=== PATIENT | female | born 1950 | race Caucasian/White ===

== ENCOUNTER 2019-10-09 08:14 | Observation (INO) ==
--- NOTE | 2019-09-09 16:49 | PAT Medication Instructions ---
Medication Instructions Date of Service September 09, 2019 Home Medications albuterol sulfate 90 mcg/actuation aerosol inhaler 2 puffs INH Q4H PRN ascorbic acid (vitamin C) 500 mg capsule 500 mg PO BID aspirin 81 mg tablet,delayed release 81 mg PO QAM calcium carbonate-vitamin D3 600 mg (1,500 mg)-400 unit capsule 2 cap PO QAM ezetimibe 10 mg-simvastatin 20 mg tablet 1 tab PO QAM fluticasone fur. 100 mcg-umeclid 62.5 mcg-vilant 25 mcg inhalat.powder 1 puffs INH QAM hydrocodone 5 mg-acetaminophen 325 mg tablet 1 tab PO Q6H PRN losartan 50 mg tablet 50 mg PO QAM magnesium oxide 400 mg PO TID metoprolol succinate 25 mg tablet,extended release 24 hr 12.5 mg PO QAM multivitamin 1 tab PO QAM sertraline 100 mg tablet 100 mg PO QAM montelukast 10 mg PO QAM omeprazole 40 mg PO QAM DO NOT take the morning of surgery ascorbic acid (vitamin C) 500 mg capsule 500 mg PO BID calcium carbonate-vitamin D3 600 mg (1,500 mg)-400 unit capsule 2 cap PO QAM hydrocodone 5 mg-acetaminophen 325 mg tablet 1 tab PO Q6H PRN losartan 50 mg tablet 50 mg PO QAM magnesium oxide 400 mg PO TID multivitamin 1 tab PO QAM montelukast 10 mg PO QAM Take morning of surgery With a small sip of water, OTHERWISE NOTHING TO EAT OR DRINK AFTER MIDNIGHT: albuterol sulfate 90 mcg/actuation aerosol inhaler 2 puffs INH Q4H PRN (if needed) aspirin 81 mg tablet,delayed release 81 mg PO QAM ezetimibe 10 mg-simvastatin 20 mg tablet 1 tab PO QAM fluticasone fur. 100 mcg-umeclid 62.5 mcg-vilant 25 mcg inhalat.powder 1 puffs INH QAM metoprolol succinate 25 mg tablet,extended release 24 hr 12.5 mg PO QAM sertraline 100 mg tablet 100 mg PO QAM omeprazole 40 mg PO QAM Take evening before surgery albuterol sulfate 90 mcg/actuation aerosol inhaler 2 puffs INH Q4H PRN (if needed) ascorbic acid (vitamin C) 500 mg capsule 500 mg PO BID hydrocodone 5 mg-acetaminophen 325 mg tablet 1 tab PO Q6H PRN (if needed) magnesium oxide 400 mg PO TID Other Notes If you have any questions please call us at [phone] or [phone] or [phone] or [phone]
--- NOTE | 2019-09-10 11:14 | Anesthesiology Consultation ---
Date of Service September 10, 2019 Assessment & Plan (1) Encounter for pre-operative examination: COVID Status: As of 09/09 assessment, patient denies travel to endemic area, known exposure/sick contacts, or symptoms of COVID19. Patient instructed to follow strict social distancing guidelines, wear a mask in public and avoid travel for 14 days prior to surgery. Preoperative COVID19 testing to be completed prior to surgery (10/02 at [facility]). Patient made aware to self-isolate as much as possible between COVID testing and surgery. Patient with h/o 10 total lumbar surgeries. Likely difficult spinal. This was discussed with patient. She understands there will be further evaluation AM DOS. OR notified of possible need for GA and to make case later in the day; if pre-op covid test not resulted by time of surgery, pt will need 20/20 rule. Chart Review Chart Review: Acceptable Risk for Surgery and Patient seen in Pre Admission Testing Teaching & Discussion Instructed NPO after midnight before surgery, except medications with 15 cc of water. Medication instructions provided according to the PAT guidelines. History Surgery Operation Date: 10/09/19 09:05 Proposed Procedures p Right Total Knee Arthroplasty - Bladimir Tena MD Height/Weight Height: 5 ft 4 in Weight: 91.4 kg Allergies Allergy/AdvReac Type Severity Reaction Status Date / Time morphine Allergy Unknown Unknown Unverified 09/03/19 10:55 Medications Home Medications Medication Instructions Recorded Confirmed Last Taken albuterol sulfate 90 mcg/actuation 2 puffs INH Q4H PRN gm 12/19/18 09/03/19 Unknown aerosol inhaler ascorbic acid (vitamin C) 500 mg 500 mg PO BID cap 12/19/18 09/03/19 Unknown capsule aspirin 81 mg tablet,delayed 81 mg PO QAM 12/19/18 09/03/19 Unknown release calcium carbonate-vitamin D3 600 2 cap PO QAM cap 12/19/18 09/03/19 Unknown mg (1,500 mg)-400 unit capsule ezetimibe 10 mg-simvastatin 20 mg 1 tab PO QAM 12/19/18 09/03/19 Unknown tablet fluticasone fur. 100 mcg-umeclid 1 puffs INH QAM 12/19/18 09/03/19 Unknown 62.5 mcg-vilant 25 mcg inhalat.powder hydrocodone 5 mg-acetaminophen 325 1 tab PO Q6H PRN 10/23/19 07/07/20 Unknown mg tablet losartan 50 mg tablet 50 mg PO QAM 12/19/18 09/03/19 Unknown magnesium oxide 400 mg PO TID tab 12/19/18 09/03/19 Unknown metoprolol succinate 25 mg 12.5 mg PO QAM 12/19/18 09/03/19 Unknown tablet,extended release 24 hr multivitamin 1 tab PO QAM 12/19/18 09/03/19 Unknown sertraline 100 mg tablet 100 mg PO QAM 12/19/18 09/03/19 Unknown montelukast 10 mg PO QAM 09/03/19 09/03/19 Unknown omeprazole 40 mg PO QAM 09/03/19 09/03/19 Unknown Past Medical History Medical History (Updated 09/11/19 @ 11:38 by Deuce Yoo) Anxiety Asthma WELL CONTROLLED > RES INH EVERY DAY JUST FOR EXTRA PRECAUTION Diverticular disease GERD (gastroesophageal reflux disease) Heart murmur Mild-moderate mitral regurgitation per 2018 echo Hx of gastric ulcer Hyperlipidemia Hypertension Osteoarthritis Exercise / Class Metabolic Activity II 4-5 Yardwork/Stairs/Walk up hill (Denies CP or SOB with 1 FOS) Past Family History Family History Mother Rectal cancer Past Surgical History Surgical History (Updated 09/11/19 @ 11:35 by Deuce Yoo) History of back surgery X 10. WITH RODS AND RECONSTRUCTION> STANDARD/ [facility] History of bilateral tubal ligation History of cardiac cath 2018 due to chest pain and abnormal stress test. Mild, nonobstructive two vessel CAD. History of carpal tunnel release RIGHT History of colonoscopy History of esophagogastroduodenoscopy (EGD) History of hysterectomy History of tooth extraction History of total shoulder replacement LEFT Hx of cervical spine surgery X1. 30 YRS AGO. ROM IS GOOD PER PATIENT Hx of hand surgery THUMB SURGERY LEFT HAND Past Anesthesia History No Hx of Anesthesia Complications and No Family Hx of Anesthesia Complications History of PONV No Hx of PONV and No Hx of Motion Sickness Social History Smoking Status: Former smoker Do You Dip or Chew Tobacco: No Smoking End Date: 23 YRS AGO Hx Alcohol Use: Yes Alcohol type: wine and hard liquor alcohol intake frequency: a few times a month Hx Substance Use: No substance use type: does not use Review of Systems Pt denies any recent chest pain, shortness of breath, palpitations, cough, fever or URI. Physical Exam Vital Signs BP: 121/76 P: 56bpm SPO2: 93% RA T: 98.5 F R: 16 ENMT Mouth: + dentures (full upper); no chipped teeth and no loose teeth Thyromental Distance: > or= 3.5 Finger Breadths (3.5) Mallampati Class: I Neck + short neck; neck extension not limited Respiratory normal respiratory effort Auscultation: lungs clear to auscultation bilaterally Cardiovascular Rate/Rhythm: regular rate and regular rhythm Heart Sounds: + murmur (II/ SABRINA RSB) Vessels: no carotid bruit Extremities: no edema Testing Laboratory Results 09/10/19 11:25 09/10/19 11:25 PT 11.3 Seconds (9.0-12.0) 09/10/19 11: INR 1.1 (0.9-1.1) 09/10/19 11: APTT 28.2 Seconds (21.0-31.0) 09/10/19 11:25 Blood Type O Positive 09/10/19 11:25 Antibody Screen POSITIVE A 09/10/19 11:25 Spoke to [place] in Blood Bank re: + antibodies. Patient has anti-K ab, nothing further needed. Electrocardiogram Date: 05/09/19 Findings: + NSR @ (77bpm) Left axis deviation. RBBB. Inferior infarct, age undetermined. Chest X-Ray Date: 05/09/19 Stable emphysematous changes in the lungs. Small amount of fluid in the fissure. Echocardiogram Date: 09/15/17 EF: 55% Grade 1 diastolic dysfunction. No LVH. Mildly dilated left atrium. Normal RV size and function. Mild to moderate mitral regurgitation. Otherwise normal study. Cardiac Catheterization Date: 10/12/17 1. LM is normal 2. LAD is a medium-sized vessel with no angiographically significant disease. 3. LCx artery is a medium-sized vessel with mild area of stenosis, which is less than 20% in the proximal segment. RV SERVICER is a medium to large-sized vessel, dominant with mild less than 30% stenosis. Conclusion: Mild CAD.
[2019-09-10 12:13] LABS: Basophils # (auto) 0.01 K/uL (0-0.2); Basophils % (auto) 0.2 %; Eosinophils % (auto) 1.6 %; Hematocrit (blood only) 39.4 % (37-47); Hemoglobin 12.6 g/dL (12.0-16.0); Lymphocytes # (auto) 1.49 K/uL (1.2-3.4); Lymphocytes % (auto) 23.8 %; Mean Corpuscular Hemoglobin 30.9 pg (25-34); Mean Corpuscular Volume 96.6 fL (80-100); Mean Platelet Volume 10.7 fL (7.4-10.4); Monocytes # (auto) 0.85 K/uL (0.11-0.59); Monocytes % (auto) 13.6 %; Neutrophils # (auto) 3.82 K/uL (1.4-6.5); Neutrophils % (auto) 60.8 %; Platelet Count 153 K/uL (130-400); RDW Coefficient of Variation 15.2 % (11.5-14.5); RDW Standard Deviation 53.6 fL (36.4-46.3); Red Blood Count 4.08 M/uL (4.2-5.4); White Blood Count 6.27 K/uL (4.8-10.8)
[2019-09-10 12:23] LABS: BUN Creatinine Ratio 14.3 (10-20); Blood Urea Nitrogen 13 mg/dl (7-18); C Reactive Protein < 0.29 mg/dl (0-0.29); Calcium 9.3 mg/dl (8.5-10.1); Carbon Dioxide 30 mmol/L (21-32); Chloride 105 mmol/L (98-107); Creatinine Clr Calc Pharmacy 61.6 ml/min; Est GFR (African American) 72.2; Est GFR (Non-African American) 62.3; Glucose 92 mg/dl (70-99); Potassium 4.5 mmol/L (3.5-5.1); Sodium 140 mmol/L (136-145)
[2019-09-10 12:28] LABS: INR 1.1 (0.9-1.1); Partial Thromboplastin Time 28.2 Seconds (21.0-31.0); Prothrombin Time 11.3 Seconds (9.0-12.0)
--- NOTE | 2019-10-05 12:54 | History and Physical Report ---
DATE OF ADMISSION: 10/09/2019 CHIEF COMPLAINT: Persistent right knee pain, discomfort and swelling and instability. HISTORY OF PRESENT ILLNESS: The patient is a 69-year-old female who presents for surgical treatment of right knee. She has about a 5+ year history of gradually increasing right knee pain and discomfort that has gotten worse over time. She was initially treated with injections, which helped quite a bit, but has become less successful over time. She describes global pain in the knee. The shots helped for about a week. She has a limited walking tolerance. She has pain going up and down stairs. It does swell and feels tight and stiff. She is also concerned about giving out. She would like to have it fixed. PAST MEDICAL HISTORY: 1. Hypertension. 2. Elevated cholesterol. 3. Emphysema/COPD. 4. Arthritis. PAST SURGICAL HISTORY: Include: 1. Back operation x10 with the last one done 4 years ago in [place]. 2. Shoulder replacement done by Dr. Camacho. ALLERGIES: None. CURRENT MEDICINES: Include: 1. Albuterol. 2. Vitamin C. 3. Aspirin. 4. Vitamin D. 5. Vytorin. 6. Fluticasone nasal spray. 7. Hydrocodone/Tylenol. 8. Cozaar. 9. Magnesium oxide. 10. Metoprolol. 11. Montelukast. 12. Multivitamin. 13. Ranitidine. 14. Sertraline. 15. Zoloft. SOCIAL HISTORY: A 69-year-old female. She is . Does not smoke. No significant alcohol intake. FAMILY HISTORY: Noncontributory. REVIEW OF HISTORY: Negative for diabetes, neurologic problem, vascular problems or bleeding disorders. No chest pain or shortness of breath. No history of DVT or PE. No known bleeding problems. PHYSICAL EXAMINATION GENERAL: Shows a pleasant, middle-aged female. Looks to be in pretty good health. HEENT: Benign. NECK: Supple, no lymphadenopathy. LUNGS: Clear to auscultation. HEART: Regular rate and rhythm. ABDOMEN: Soft, nontender, nondistended. EXTREMITIES: Grossly neurovascularly intact except as follows. Examination of the right knee reveals the patient ambulates with a slight bit of a limp. Fairly neutral alignment to her knee. She has a small to moderate sized knee effusion. Range of motion about 5 degrees short of full extension and 125 degrees of flexion. There is no instability. She has no pain with hip motion. X-RAYS: X-rays of the right knee from previously reviewed. Shows moderate to advanced right knee tricompartment DJD. She has chondrocalcinosis. A little bit of tibial femoral subluxation. ASSESSMENT: A 69-year-old female with moderately advanced tricompartment degenerative joint disease, unresponsive to conservative care. It is affecting her quality of life and limiting her activity level and she would like to have her knee fixed. PLAN: We are going to proceed with a right total knee replacement. The risks and benefits of this procedure were explained to the patient including but not limited to DVT, PE, , infection, neurological injury, vascular injury, bleeding problem, pain, limited range of motion, stiffness, failure to relieve symptoms, incomplete relief of symptoms, need for further surgery in the future, fracture, leg length inequality, nerve palsy, incomplete relief of symptoms. The patient understands and desires to proceed. Informed consent was obtained. I did tell him that this is not going to help her back pain. We did talk to her about taking her metoprolol the morning of surgery.
[~2019-10-09 08:14] MED LIST: ACETAMINOPHEN 500 MG TAB PO SCH; BUPIVACAINE 0.25% 30 ML VIAL ONE; BUPIVACAINE 0.5 % 5 MG/1 ML PF 10ML VIAL ONE; BUPIVACAINE LIPOSOME/PF 266 MG, BUPIVACAINE/EPINEPHRINE 50 ML, SODIUM CHLORIDE 0.9% 30 ... INFIL SCH; CEFAZOLIN 2000MG 2,000 MG/15 ML SYR IV SCH; FAMOTIDINE 20 MG TAB PO SCH; GABAPENTIN 300 MG CAP PO SCH; LR 500ML BOLUS, THEN 15ML/HR IV SCH; LR 60ML/HR IV SCH; METOCLOPRAMIDE HCL 10 MG TABLET PO SCH; TRANEXAMIC ACID 1,000 MG **IV Intra-op IV SCH
--- NOTE | 2019-10-09 08:57 | History & Physical Bridge Note ---
Date of Service October 09, 2019 History & Physical Bridge Note I have examined the patient, reviewed the History & Physical and in the interval since the performance of the History & Physical I have noted the following changes of clinical significance: no changes noted
[2019-10-09] MEDS ORDERED: MIDAZOLAM HCL 1 MG/ML 2ML VIAL ONE ×2 (09:23→12:37)
[2019-10-09] MEDS ORDERED: ATROPINE SULFATE 0.1 MG/ML 10ML SYR IV PRN (09:46)
[2019-10-09] MEDS ORDERED: fentaNYL citrate 100 MCG/2 ML VIAL IV PRN (09:46)
[2019-10-09] MEDS ORDERED: ONDANSETRON INJ 2 MG/ML 2 ML VIAL IV PRN ×2 (09:46→14:33)
[2019-10-09] MEDS ORDERED: ePHEDrine sulfate 50 MG/ML AMP IV PRN (09:46)
[2019-10-09] MEDS ORDERED: BUPIVACAINE LIPOSOME 1.3% 266 MG/20 ML VIAL ONE (11:08)
[2019-10-09] MEDS ORDERED: SODIUM CHLORIDE 0.9% PF 50 ML VIAL ONE (11:08)
[2019-10-09] MEDS ORDERED: BACITRACIN INJ 50,000 UNIT VIAL ONE (11:08)
[2019-10-09] MEDS ORDERED: BUPIVACAINE/EPINEPHRINE 0.25% 1:200,000 30 ML VIAL ONE (11:08)
[2019-10-09] MEDS ORDERED: PROPOFOL IV EMULSION 10 MG/ML 20 ML VIAL IV ONE (12:38)
[2019-10-09] MEDS ORDERED: ePHEDrine sulfate 50 MG/ML SYR ONE (12:38)
[2019-10-09] MEDS ORDERED: LIDOCAINE HCL 2% 2 ML VIAL/AMP(20MG/ML) INFIL ONE (12:38)
[2019-10-09] MEDS ORDERED: PHENYLEPHRINE HCL 10 MG/ML VIAL ONE (12:59)
--- NOTE | 2019-10-09 13:17 | Operative Report ---
Post Operative Report Pre & Post Diagnosis Operation Date: 10/09/19 10:55 Pre-Op Diagnosis: RIGHT KNEE DEGENERATIVE JOINT DISEASE Post-Op Diagnosis: RIGHT KNEE DEGENERATIVE JOINT DISEASE I identified the patient and participated in the time-out.: Yes Procedure Operation Date: 10/09/19 10:55 Actual Procedures p Right Total Knee Arthroplasty(Right) - Bladimir Tena MD Surgeon Bladimir Tena MD Grading Machine Operator John, PAC Estimated Blood Loss 50 Findings Consistent with Post-Op Diagnosis Operative findings revealed moderate right knee tricompartment DJD. She had cartilage thinning and wear in all 3 compartments most severe in the medial side. There is no severe and eburnation and fairly small osteophytes in the medial compartment. Small knee joint effusion. Fluids 1400 cc. Specimens Right knee sent for pathology. Drains None. Anesthesia Type Spinal MAC Complications none Disposition Accompanied Patient To Recovery: No Disposition: Recovery Room Indications Patient is a 69-year-old female is been a long-term patient of mine who present presents for surgical treatment of right knee. Schedule V plus year history of increasing right knee pain discomfort. This is failed conservative care. X- rays revealed moderate right knee DJD. She failed all conservative treatment and strongly desired to proceeding with knee arthroplasty. Description of Procedure Operative implants consist of: 1. Biomet Vanguard size 65 right posterior stabilized femoral component. 2. Biomet size 67 tibial tray. 3. 10 mm posterior box polyethylene insert. 4. 31 x 8 all poly-patella. Patient was taken to the operating identified and placed on the operating table supine position protectors were properly padded. IV antibiotics arrived by anesthesia team. A spinal anesthetic and abductor canal block had provided holding area. Lira catheter was placed in sterile fashion. Right thigh turn was then placed in the right lower extremities and prepped and draped in usual sterile fashion. The right leg was elevated exsanguinated the use of an Esmarch and turns placed at 300 mmHg. An anterior approach to the right knee was then performed to longitudinal incision centered over the patella. Sharp dissection was got through subcutaneous tissue down to level the extensor mechanism. A medial parapatellar arthrotomy incision was made. Some subperiosteal dissection was carried out medially. The fat pad was resected from each patella tendon. Lateral patellofemoral ligament was released. Patella was subluxated laterally and the knee was flexed. The osteophytes were taken off the distal femur. The ACL and PCL were then released and distal femur the tibia subluxated anteriorly. The external tibial alignment jig was then placed in the interface the tibia and adjusted 14 mm medially. Proximal tibial cut was made to remove about 3 to 4 mm of bone from the medial side. She did not have much in the way of bone wear. The tibia was then sized to a size 67. We did have to downsize this in order to get an appropriate rotation. Attention drawn the femur. The distal femur was then with a sharp drop with intramedullary canal was suction. A right 5 degree valgus cutting guide was placed. Distal femoral cutting block was pinned in place. Distal femoral cut was made to take an additional 3 mm bone off distal femur. The femur was then sized to a size 65. The AP cutting block was pinned parallel to the epicondylar axis which was 3 degrees of external rotation. The anterior cut, anterior chamfer, posterior cut, posterior chamfer cuts were made. Box cutting guide was placed in just slight lateral and the box cut was made. The knee was flexed. The remnants of the medial lateral menisci were excised. The osteophytes were taken off the posterior aspect of the femur. Trial femoral component was placed. The tibial tray was pinned in maximum external rotation and the drill and stem punch were used to create defect in proximal tip for the tibial tray. Knee was then trialed and the 10 mm insert fit most appropriately. Attention drawn the patella. The patella was cleaned of all soft tissues. Patella thickness measured 22 mm in thickness and was cut down 13. Was sized to a size 31 patella. Locals were drilled for 31 patella. The lateral osteophyte was removed. Patella button was placed. Knee was taken through range of motion and the patella tracked nicely with no thumbs test. Attention drawn to place the permanent components. All trial implants were removed. A bone plug was placed in the distal femur limit blood loss put a double batch Pal[place]os G cement was mixed. Biomet Vanguard size 65 right posterior by femoral component, size 67 tibial tray, 10 mm posterior box polyethylene insert, and a 31 x 8 all poly-patella were then cemented in place. The knee was brought out into full extension total cement hardened. Final cement check was then performed. Pericapsular tissues were injected with total 100 cc of combination of 20 cc of Exparel, 30 cc normal saline, 50 cc of quarter percent Marcaine with epinephrine. Patient did receive 1 g tranexamic acid. The tourniquet was then let down for final tourniquet time 58 minutes. Hemostasis assured use electrocautery. The wounds once again irrigated. The extensor mechanism then closed with combination 1 PDS suture #1 Vicryl suture in [id number] fashion. Extensor mechanism was checked and found to be intact and the subcutaneous tissue then closed with 2 Dexon suture in a buried interrupted fashion the skin was then closed with skin el. Leg was then cleaned dried and sterile dressed composed Xeroform, 4 x 4's, sterile cast padding, Hugo bandage were applied. Patient then transferred to the recovery room in stable condition. Patient tolerated the procedure well and there were no complications. Jose Lopez, my physician assistant manager/embalmer, was present for the entire procedure. His assistance was critical to appropriately positioned the patient, prepped and draped, surgical exposure, performing the technical details of the operation, placement the implants, closing the wound, and placement of the sterile bandage. I attest to the content of the Intraoperative Record and any orders documented therein. Any exceptions are noted below.
--- NOTE | 2019-10-09 13:37 | XRay Report ---
XR knee RT 1 or 2V routine CLINICAL HISTORY: Surgical Post Op COMPARISON: None. DISCUSSION: Anatomic alignment post total right knee arthroplasty. Good contact between prosthetic an d underlying bone. Expected soft tissue postoperative change. IMPRESSION: Anatomic alignment post total right knee arthroplasty. ACT 112: Negative or not required by law. The above report was generated using voice recognition software. It may contain grammatical, syntax or spelling errors. Electronically signed by: Paul Hennessy M.D. 10/09/2019 1:36 PM
[2019-10-09] MEDS ORDERED: ALUMINUM/MAGNESIUM SUSP 30 ML UDC PO PRN (14:33)
[2019-10-09] MEDS ORDERED: METOCLOPRAMIDE HCL INJ 5 MG/ML 2 ML VIAL IV PRN (14:33)
[2019-10-09] MEDS ORDERED: MAGNESIUM HYDROXIDE SUSP 30 ML UDC PO PRN (14:33)
[2019-10-09] MEDS ORDERED: bisacodyL 10 MG SUPP PR PRN (14:33)
[2019-10-09] MEDS ORDERED: ALBUTEROL HFA 8 GM INHALER INH PRN (14:33)
[2019-10-09] MEDS ORDERED: HYDROmorphone INJ 0.5 MG/0.5 ML SYR IV PRN (14:33)
[2019-10-09] MEDS ORDERED: NALOXONE HCL 0.4 MG/1 ML VIAL/CARP IV PRN (14:33)
[2019-10-09] MEDS: Scopolamine CHECK PATCH PLACEMENT SCH ×2 (15:26→23:43)
[2019-10-09] MEDS: SODIUM CHLORIDE 0.9% 1000ML 1,000 ML IV SCH ×2 (15:27→23:43)
[2019-10-09] MEDS: KETOROLAC TROMETHAMINE 15 MG/ML VIAL IV SCH ×2 (15:27→21:08)
--- NOTE | 2019-10-09 16:28 | Anesthesiology Progress Note ---
Date of Service October 09, 2019 Anesthesia Post Procedure Vital Signs Vital Signs: Temp Pulse Pulse Pulse Resp BP Pulse Ox 10/09/19 16:18 36.4 C L 59 L 18 124/78 97 10/09/19 15:20 36.4 C L 60 18 101/65 97 10/09/19 14:50 36.6 C 62 18 110/70 98 10/09/19 14:20 36.8 C 62 14 125/75 95 10/09/19 14:10 67 12 111/57 L 95 10/09/19 14:00 37.0 C 66 15 133/64 95 10/09/19 13:50 67 14 142/69 H 95 10/09/19 13:40 65 12 134/70 95 10/09/19 13:30 67 18 134/65 98 10/09/19 13:20 67 13 139/76 100 10/09/19 13:14 37.1 C 73 19 132/77 100 10/09/19 09:40 37.0 C 64 18 140/98 94 Pain Intensity Back: Pain Intensity: 5 Right Knee: Pain Intensity: 7 Transfer of Care Handoff Completed per policy Notes Mental Status: alert / awake / arousable and participated in evaluation Patient Amnestic to Procedure: Yes Nausea / Vomiting: adequately controlled Pain: adequately controlled Airway Patency, RR, SpO2: stable & adequate BP & HR: stable & adequate Hydration State: stable & adequate Neuraxial Anesthesia: was administered and sensory block is resolving Anesthetic Complications: no major complications apparent and Pt Satisfied with anesthetic care
[2019-10-09] MEDS: FERROUS GLUCONATE 324 MG TAB PO SCH (17:18)
[2019-10-09] MEDS: ASCORBIC ACID 500 MG TAB PO SCH (17:18)
[2019-10-09] MEDS: CEFAZOLIN 2000MG 2,000 MG/15 ML SYR IV SCH (17:19)
[2019-10-09] MEDS ORDERED: TRANEXAMIC ACID / 0.7% NACL 1,000 MG/100 ML BAG IV SCH (19:00)
[2019-10-09] MEDS ORDERED: SENNA 8.6 MG TAB PO SCH (21:00)
[2019-10-09] MEDS ORDERED: NON-FORMULARY MEDICATION (Ascorbic Acid (Vitamin C) 500 MG) PO SCH (21:00)
[2019-10-09] MEDS: DOCUSATE SODIUM 100 MG CAP PO SCH (21:07)
[2019-10-09] MEDS: ASPIRIN 81 MG ECTAB PO SCH (21:07)
[2019-10-09] MEDS: TAPENTADOL HCL ER 50 MG TABCR PO SCH (21:08)
[2019-10-09] MEDS: CALCIUM 600MG + VIT D 400 IU TAB PO SCH (21:08)
[2019-10-09] MEDS: MAGNESIUM OXIDE 400 MG TAB PO SCH (21:08)
[2019-10-09] MEDS: OXYCODONE HCL IR 5 MG TAB (IMMEDIATE RELEASE) PO PRN (22:36)
[2019-10-10] MEDS: CEFAZOLIN 2000MG 2,000 MG/15 ML SYR IV SCH (02:28)
[2019-10-10] MEDS: KETOROLAC TROMETHAMINE 15 MG/ML VIAL IV SCH ×2 (04:30→09:19)
[2019-10-10 06:10] LABS: Hematocrit (blood only) 28.8 % (37-47); Hemoglobin 9.1 g/dL (12.0-16.0); Mean Corpuscular Hemoglobin 30.8 pg (25-34); Mean Corpuscular Hgb Conc 31.6 g/dL (32-36); Mean Corpuscular Volume 97.6 fL (80-100); RDW Standard Deviation 53.3 fL (36.4-46.3); Red Blood Count 2.95 M/uL (4.2-5.4); White Blood Count 5.91 K/uL (4.8-10.8)
[2019-10-10 06:39] LABS: Mean Platelet Volume 11.1 fL (7.4-10.4); Platelet Count 91 K/uL (130-400); Platelet Estimate Decreased (Normal)
[2019-10-10 06:40] LABS: BUN Creatinine Ratio 14.2 (10-20); Calcium 8.1 mg/dl (8.5-10.1); Creatinine Clr Calc Pharmacy 66.7 ml/min; Est GFR (African American) 79.3; Est GFR (Non-African American) 68.4; Potassium 3.9 mmol/L (3.5-5.1)
[2019-10-10 07:32] VITALS: BP 117/67; PULSE 68; TEMP 99.5; O2SAT 93
[2019-10-10] MEDS: Scopolamine CHECK PATCH PLACEMENT SCH (07:48)
[2019-10-10] MEDS: ASCORBIC ACID 500 MG TAB PO SCH (07:48)
[2019-10-10] MEDS: FERROUS GLUCONATE 324 MG TAB PO SCH (07:48)
[2019-10-10] MEDS: TAPENTADOL HCL ER 50 MG TABCR PO SCH (08:36)
[2019-10-10] MEDS: CALCIUM 600MG + VIT D 400 IU TAB PO SCH (08:37)
--- NOTE | 2019-10-10 08:37 | Progress Notes ---
DATE: 10/10/2019 SUBJECTIVE: A 69-year-old female postop day 1 from a right knee replacement. She is doing pretty well. Had a pretty good night. Pain seems to be controlled. Denies any chest pain or shortness of breath. OBJECTIVE: VITAL SIGNS: Temperature 37.0. Vital signs stable. GENERAL: Shows a pleasant elderly female. She is lying in bed, looks pretty comfortable. EXTREMITIES: Examination of the right leg reveals the dressing to be clean, dry and intact. Leg is well aligned. She can dorsiflex and plantarflex her foot appropriately. She is neurologically intact. LABORATORY DATA: Hemoglobin 9.1. Hematocrit 28.8. Electrolytes are stable. ASSESSMENT: A 69-year-old female postoperative day 1 from right knee replacement, doing pretty well. Pain is controlled. She is neurologically intact. She is slightly anemic, but asymptomatic. PLAN: 1. DVT prophylaxis including thigh-high TEDs, SCDs, and aspirin twice a day. 2. PT/OT. Weight bear as tolerated. Right total knee protocol. 3. Pain control, doing well with current pain regimen. 4. Anemia. Currently, asymptomatic. Continue iron supplementation. 5. Disposition: She is hoping to be discharged today to home with some home health. We will see how she does in therapy.
[2019-10-10] MEDS: MAGNESIUM OXIDE 400 MG TAB PO SCH ×2 (08:38→13:07)
[2019-10-10] MEDS: DOCUSATE SODIUM 100 MG CAP PO SCH (08:38)
[2019-10-10] MEDS: ASPIRIN 81 MG ECTAB PO SCH (08:38)
[2019-10-10] MEDS ORDERED: MULTIVITAMIN TAB PO SCH ×2 (09:00)
[2019-10-10] MEDS ORDERED: EZETIMIBE/SIMVASTATIN 10/20 TAB PO SCH (09:00)
[2019-10-10] MEDS ORDERED: SERTRALINE HCL 100 MG TABLET PO SCH (09:00)
[2019-10-10] MEDS ORDERED: METOPROLOL SUCC 25MG EXT REL TAB PO SCH (09:00)
[2019-10-10] MEDS ORDERED: UMECLIDINIUM/VILANTEROL 62.5/25MCG 7 PUFFS/INHALER INH SCH (09:00)
[2019-10-10] MEDS ORDERED: PANTOprazole 40 MG TAB PO SCH (09:00)
[2019-10-10] MEDS ORDERED: LOSARTAN POTASSIUM 50 MG TAB PO SCH (09:00)
[2019-10-10] MEDS ORDERED: NON-FORMULARY MEDICATION (Fluticasone-Umeclidin-Vilanter [Trelegy Ellipta] 1 PUFFS) INH SCH (09:00)
[2019-10-10] MEDS ORDERED: FLUTICASONE FUROATE 100MCG 14 PUFFS/INHALER INH SCH (09:00)
[2019-10-10] MEDS ORDERED: MONTELUKAST SODIUM 10 MG TABLET PO SCH (09:00)
[2019-10-10] MEDS: OXYCODONE HCL IR 5 MG TAB (IMMEDIATE RELEASE) PO PRN (12:25)
--- NOTE | 2019-10-14 16:21 | Discharge Summary ---
Date of Service October 14, 2019 Admission HPI Per Admitting Provider Documented in the H & P Admission Exam (Per Admitting) Constitutional Documented in the H & P Discharge Data Consultations 10/09/19 14:33 Consult Case Management - Discharge Planning Routine Procedures Performed Operation Date: 10/09/19 10:55 Actual Procedures p Right Total Knee Arthroplasty(Right) - Bladimir Tena MD Hospital Course (1) Status post total right knee replacement: This patient is a 69 year old female admitted on 10/09/19 and underwent total knee replacement. She tolerated the procedure well and there were no complications. Transferred to the PACU post op and later to the orthopedic floor for further care. She was given ancef for antibiotic prophylaxis. She was also given BEHZAD stockings, SCDs, and aspirin for DVT prophylaxis. Hemoglobin, hematocrit, and vital signs were monitored during her hospital stay and remained stable. Did not require any blood transfusions. She was anemic and received an iron supplement. There were no complications during her hospital stay. By post op day #1 the patient was tolerating a regular diet, pain was reasonably controlled with oral pain medicine, and she was participating in physical therapy. On post op day #1 the patient was discharged home and set up with home health care. She was given printed discharge instructions including prescriptions for extra strength tylenol, aspirin, iron supplement and oxycodone. Continue physical therapy, weight bearing as tolerated. Continue BEHZAD stockings. Follow up approximately 2 weeks post op or sooner if there are problems or concerns. Coding Level of Care Code None Diagnoses Status post total right knee replacement Z96.651
== END 2019-10-10 13:54 | disposition home health service (06) ==
LOC: ASU 08:14 → 3E 08:14

== ENCOUNTER 2022-03-09 08:02 | Observation (INO) ==
--- NOTE | 2022-02-25 14:17 | PAT Medication Instructions ---
Medication Instructions Date of Service February 25, 2022 Home Medications Medication Instructions Recorded Sree Roland #1 ea 10/17/19 fluticasone fur. 100 mcg-umeclid 1 inh inhalation QAM #1 inhaler 04/21/20 62.5 mcg-vilant 25 mcg inhalat.powder (Trelegy Ellipta) albuterol sulfate 90 mcg/actuation aerosol inhaler 2 puffs inhalation Q4H PRN Shortness Of Breath ascorbic acid (vitamin C) 500 mg capsule 500 mg PO BID aspirin 81 mg tablet,delayed release (Adult Low Dose Aspirin) 81 mg PO QAM calcium carbonate 600 mg-vitamin D3 10 mcg (400 unit) capsule 2 cap PO QAM ezetimibe 10 mg-simvastatin 20 mg tablet (Vytorin) 1 tab PO QAM hydrocodone 5 mg-acetaminophen 325 mg tablet ([place]) 1 tab PO Q6H PRN Pain losartan 50 mg tablet (Cozaar) 50 mg PO QAM magnesium oxide 400 mg PO TID metoprolol succinate 25 mg tablet,extended release 24 hr 12.5 mg PO QAM multivitamin (Daily Multi-Vitamin tablet) 1 tab PO QAM acetaminophen 500 mg tablet (Tylenol Extra Strength) 500 mg PO QID PRN Pain fluticasone fur. 100 mcg-umeclid 62.5 mcg-vilant 25 mcg inhalat.powder (Trelegy Ellipta) 1 inh inhalation QAM #1 inhaler duloxetine 30 mg capsule,delayed release 30 mg PO QAM famotidine 40 mg tablet 40 mg PO BID DO NOT take the morning of surgery ascorbic acid (vitamin C) 500 mg capsule 500 mg PO BID calcium carbonate 600 mg-vitamin D3 10 mcg (400 unit) capsule 2 cap PO QAM losartan 50 mg tablet (Cozaar) 50 mg PO QAM magnesium oxide 400 mg PO TID multivitamin (Daily Multi-Vitamin tablet) 1 tab PO QAM Take morning of surgery With a small sip of water, OTHERWISE NOTHING TO EAT OR DRINK AFTER MIDNIGHT: albuterol sulfate 90 mcg/actuation aerosol inhaler 2 puffs inhalation Q4H PRN Shortness Of Breath (use if needed; please bring rescue inhaler with you to hospital day of surgery if possible) aspirin 81 mg tablet,delayed release (Adult Low Dose Aspirin) 81 mg PO QAM (continue as normal unless told otherwise by surgeon) ezetimibe 10 mg-simvastatin 20 mg tablet (Vytorin) 1 tab PO QAM hydrocodone 5 mg-acetaminophen 325 mg tablet ([place]) 1 tab PO Q6H PRN Pain (if needed) metoprolol succinate 25 mg tablet,extended release 24 hr 12.5 mg PO QAM acetaminophen 500 mg tablet (Tylenol Extra Strength) 500 mg PO QID PRN Pain (if needed) fluticasone fur. 100 mcg-umeclid 62.5 mcg-vilant 25 mcg inhalat.powder (Trelegy Ellipta) 1 inh inhalation QAM duloxetine 30 mg capsule,delayed release 30 mg PO QAM famotidine 40 mg tablet 40 mg PO BID Take evening before surgery albuterol sulfate 90 mcg/actuation aerosol inhaler 2 puffs inhalation Q4H PRN Shortness Of Breath (if needed) ascorbic acid (vitamin C) 500 mg capsule 500 mg PO BID hydrocodone 5 mg-acetaminophen 325 mg tablet ([place]argo) 1 tab PO Q6H PRN Pain (if needed) magnesium oxide 400 mg PO TID acetaminophen 500 mg tablet (Tylenol Extra Strength) 500 mg PO QID PRN Pain (if needed) famotidine 40 mg tablet 40 mg PO BID Other Notes If you have any questions please call us at [phone] or [phone] or [phone] or [phone]
--- NOTE | 2022-02-28 09:47 | Anesthesiology Consultation ---
Date of Service February 28, 2022 Assessment & Plan (1) Encounter for pre-operative examination: - COVID screening: Per assessment on 02/28: No known COVID-19 positive contacts or current COVID-19 related symptoms. Travel screen negative. Patient vaccinated. At surgeon discretion if preop Covid testing being done. - Outpatient joint assessment: Pt currently scheduled for inpatient pathway. If surgeon requests review for outpatient joint pathway, patient is not recommended candidate for outpatient joint program from anesthesia standpoint. - S/P Right TKA (10/09/19): SAB at L4-5 (x1 attempt) + PNB at [facility]. No issues noted per post-op anesthesia progress note. - Preop EKG: Case reviewed with Dr. Tidwell. If possible recommends preop cardiac evaluation (if not able to, to discuss further). Patient aware of recommendation to see cardiology prior to surgery if possible d/t EKG changes in addition to known hx of mild, non-obstructive CAD. Awaiting preop cardiac evaluation (scheduled 03/03, MNP). Chart Review Chart Review: Patient seen in Pre Admission Testing Teaching & Discussion Pre-Anesthesia Teaching/Discussion Notes: Instructed NPO after midnight before surgery,except medications with 15 cc of water. Medication instructions provided according to the PAT guidelines. History Surgery Operation Date: 03/09/22 12:30 Proposed Procedures p Left Total Knee Arthroplasty - Bladimir Tena MD Height/Weight Height: 5 ft 4 in Weight: 95.1 kg Allergies Allergy/AdvReac Type Severity Reaction Status Date / Time morphine AdvReac Unknown Anxiety Unverified 02/28/22 09:55 (several years ago) Medications Home Medications Medication Instructions Recorded Confirmed Last Taken albuterol sulfate 90 mcg/actuation 2 puffs inhalation Q4H PRN 12/19/18 02/25/22 10/09/19 07:00 aerosol inhaler Shortness Of Breath ascorbic acid (vitamin C) 500 mg 500 mg PO BID 12/19/18 02/25/22 10/08/19 08:00 capsule aspirin 81 mg tablet,delayed 81 mg PO QAM 12/19/18 02/25/22 10/08/19 08:00 release (Adult Low Dose Aspirin) calcium carbonate 600 mg-vitamin 2 cap PO QAM 12/19/18 02/25/22 10/08/19 08:00 D3 10 mcg (400 unit) capsule ezetimibe 10 mg-simvastatin 20 mg 1 tab PO QAM 12/19/18 02/25/22 10/08/19 08:00 tablet (Vytorin) hydrocodone 5 mg-acetaminophen 325 1 tab PO Q6H PRN Pain 12/19/18 02/25/22 10/09/19 06:00 mg tablet ([place]) losartan 50 mg tablet (Cozaar) 50 mg PO QAM 12/19/18 02/25/22 10/08/19 08:00 magnesium oxide 400 mg PO TID 12/19/18 02/25/22 10/09/19 07:00 metoprolol succinate 25 mg 12.5 mg PO QAM 12/19/18 02/25/22 10/09/19 07:00 tablet,extended release 24 hr multivitamin (Daily Multi-Vitamin 1 tab PO QAM 12/19/18 02/25/22 10/09/19 07:00 tablet) Sree Hose #1 ea 10/17/19 04/21/20 Unknown acetaminophen 500 mg tablet 500 mg PO QID PRN Pain 04/21/20 02/25/22 Unknown (Tylenol Extra Strength) fluticasone fur. 100 mcg-umeclid 1 inh inhalation QAM #1 inhaler 04/21/20 02/25/22 Unknown 62.5 mcg-vilant 25 mcg inhalat.powder (Trelegy Ellipta) duloxetine 30 mg capsule,delayed 30 mg PO QAM 02/25/22 02/25/22 Unknown release famotidine 40 mg tablet 40 mg PO BID 02/25/22 02/25/22 Unknown Past Medical History Medical History (Updated 02/28/22 @ 11:09 by Chrissy Rea) Anxiety Asthma Stable CAD (coronary artery disease) Mild, non-obstructive two vessel CAD per 2018 cardiac cath Degenerative joint disease of left knee Diverticular disease GERD (gastroesophageal reflux disease) Hiatal hernia Hyperlipidemia Hypertension Osteoarthritis Exercise / Class Metabolic Activity II 4-5 Yardwork/Stairs/Walk up hill Past Family History Family History Mother Rectal cancer Past Surgical History Surgical History History of back surgery x10 (including rods/recontruction) History of bilateral tubal ligation History of cardiac cath 2018 > Mild, non-obstructive two vessel CAD History of carpal tunnel release Right History of colonoscopy History of esophagogastroduodenoscopy (EGD) History of hysterectomy History of tooth extraction History of total shoulder replacement Left Hx of cervical spine surgery 30 years ago Hx of hand surgery Thumb surgery left hand Hx of sinus surgery Status post right knee replacement Right TKA (10/09/19): SAB at L4-5 (x1 attempt) + PNB at [facility]. No issues noted per post-op anesthesia progress note. Past Anesthesia History No Hx of Anesthesia Complications and No Family Hx of Anesthesia Complications History of PONV No Hx of PONV and No Hx of Motion Sickness Social History Smoking Status: Former smoker tobacco type: cigarettes Do You Dip or Chew Tobacco: No Smoking End Date: Quit 25+ years ago Hx Alcohol Use: Yes (SOCIALLY) Alcohol type: wine and hard liquor alcohol intake frequency: a few times a month Hx Substance Use: No substance use type: does not use Review of Systems Patient denies chest pain, shortness of breath, dyspnea on exertion, fever, chills, cough, wheezing, palpitations. Physical Exam Vital Signs VITALS BP 121/64 P 64 TEMP 98.3 SP02 94%RA RESP 20 PHYSICAL Full cervical extension range of motion. Full TMJ range of motion. TMD 4 finger breaths Mallampati Score 3 Dentition: full upper plate, lower partial Lungs: clear throughout to auscultation Cardiac: regular rate, regular rhythm with occasional extra beats, II/ systolic murmur Spine: normal Carotid arteries: negative bruit Extremities: no edema Short neck Testing Electrocardiogram Date: 02/28/22 Unusual P axis, possible ectopic rhythm at 62bpm. LAD. iRBBB. Inferior infact (cited on/before 07/22/2014). NS STA. TWI isolated vs NS in III, AVF. Chest X-Ray Date: 02/28/22 FINDINGS: Cardiac silhouette is enlarged. No pneumothorax, pleural effusion, airspace consolidation or overt pulmonary edema. Mild linear subsegmental basilar and right midlung atelectasis versus scarring. Mild hyperinflation with diaphragmatic flattening. Degenerative changes of the spine and right shoulder. Healed chronic left-sided rib fractures. Left shoulder arthroplasty. IMPRESSION: No acute process. Echocardiogram Date: 09/15/17 EF: 55% Grade 1 diastolic dysfunction. No LVH. Mildly dilated left atrium. Normal RV size and function. Mild to moderate mitral regurgitation. Otherwise normal study. Cardiac Catheterization Date: 10/12/17 1. LM is normal 2. LAD is a medium-sized vessel with no angiographically significant disease. 3. LCx artery is a medium-sized vessel with mild area of stenosis, which is less than 20% in the proximal segment. WINDOWS SERVER ADMINISTRATOR is a medium to large-sized vessel, dominant with mild less than 30% stenosis. Conclusion: Mild CAD. COVID-19 Risk Screen Screening Information COVID-19 Screen Date: 02/28/22 Exposure 21 Days Family/Household +COVID Last 21 Days: No Exposure 10 Days Any COVID Exposure Last 10 Days: No Symptoms Last 10 Days Experienced COVID Sx Last 10 Days: No + COVID 0-90 Days COVID + in Last 0-90 Days: No
[~2022-03-09 08:02] MED LIST changes: -CEFAZOLIN 2000MG 2,000 MG/15 ML SYR IV SCH; +CeleBREX 200 MG CAP PO SCH; -GABAPENTIN 300 MG CAP PO SCH; +ceFAZolin 2000MG 2,000 MG/15 ML SYR IV SCH
--- NOTE | 2022-03-09 08:46 | History & Physical Bridge Note ---
Date of Service March 09, 2022 History & Physical Bridge Note I have examined the patient, reviewed the History & Physical and in the interval since the performance of the History & Physical I have noted the following changes of clinical significance: no changes noted
[2022-03-09] MEDS ORDERED: ONDANSETRON INJ 2 MG/ML 2 ML VIAL IV PRN ×2 (10:10→14:59)
[2022-03-09] MEDS ORDERED: ATROPINE SULFATE 0.1 MG/ML 10ML SYR IV PRN (10:10)
[2022-03-09] MEDS ORDERED: fentaNYL citrate 100 MCG/2 ML VIAL IV PRN (10:10)
[2022-03-09] MEDS ORDERED: ePHEDrine sulfate 50 MG/ML AMP IV PRN (10:10)
[2022-03-09] MEDS ORDERED: MIDAZOLAM HCL 1 MG/ML 2ML VIAL ONE (10:27)
[2022-03-09] MEDS ORDERED: PROPOFOL IV EMULSION 10 MG/ML 20 ML VIAL IV ONE ×2 (10:31→11:46)
[2022-03-09] MEDS ORDERED: LIDOCAINE 2% MPF LOCAL 5 ML VIAL INFIL ONE (10:31)
[2022-03-09] MEDS ORDERED: SODIUM CHLORIDE 0.9% PF 50 ML VIAL ONE (10:55)
[2022-03-09] MEDS ORDERED: BUPIVACAINE/EPINEPHRINE 0.25% 1:200,000 30 ML VIAL ONE (10:55)
[2022-03-09] MEDS ORDERED: BUPIVACAINE LIPOSOME 1.3% 266 MG/20 ML VIAL ONE (10:56)
--- NOTE | 2022-03-09 13:02 | Operative Report ---
PG Post Operative Report Pre & Post Diagnosis Operation Date: 03/09/22 10:40 Pre-Op Diagnosis: Left Knee Degenerative Joint Disease Post-Op Diagnosis: Left Knee Degenerative Joint Disease I identified the patient and participated in the time-out.: Yes Procedure Operation Date: 03/09/22 10:40 Actual Procedures p Left Total Knee Arthroplasty, Cemented(Left) - Bladimir Tena MD Surgeon Bladimir Tena MD Medical Scientific Officer Jose Lopez PA-C Estimated Blood Loss 50 Findings Consistent with Post-Op Diagnosis Operative findings revealed advanced left knee medial compartment DJD. She had grade 4 [id number] disease the medial compartment. The rest of her knee looked pretty well-preserved. Moderate-sized joint effusion. Fluids 1300 cc. Specimens Left knee sent for pathology Anesthesia Type Spinal MAC Complications none Indications Patient is 72-year-old female has had a long history of knee problems and knee arthritis. She been through extensive conservative treatment the past. She had her right knee replaced back in 2019 is done well from this. Continued be limited by left knee pain discomfort. She failed conservative measures and elected proceed with left total knee replacement. Description of Procedure Operative implants consist of: 1 Biomet Vanguard size 62.5 left posterior stabilized femoral component. 2. Biomet size 67 tibial tray. 3. 12 mm posterior stabilized polyethylene insert. 4. 31 x 8 all Paller patella. The patient was taken the operating, identified, placed on the operating table supine position but all contact areas were properly padded. IV antibiotics tried by anesthesia team. Spinal anesthetic and abductor canal block had provided in the holding area. Lria catheter was placed in sterile fashion. Left factor was then placed in left lower extremities and prepped and draped in usual sterile fashion. The left leg was elevated exsanguinated with use of an Esmarch and the tourniquet was placed at 300 mmHg. An anterior posterior left knee was then performed to longitudinal incision centered over the patella. Sharp dissection was carried through subcutaneous tissue down the extensor mechanism. A medial parapatellar arthrotomy incision was made. Some subperiosteal dissection was carried out medially. The fat pad was resected from Neath patella tendon. Lateral patellofemoral ligament was released. Patella subluxated laterally and the knee was flexed. The osteophytes were taken off distal femur. The ACL and PCL were then released from distal femur the tibia subluxated anteriorly. The external tibial alignment jig was then placed in the interface the tibia and adjusted 14 mm medially. Proximal tibial cut was made remove about 2 to 3 mm of bone from the medial side. The tibia was then sized to a size 67. Attention drawn the femur. The distal femur stem with a sharp drill. Intramedullary canal was suction. A left 5 degree valgus cutting guide was placed. Distal femoral cutting block was pinned in place. Distal femoral cut was made to take an additional 3 mm of bone off distal femur. Femur was then sized to a size 62.5. We did downsize this slightly. The AP cutting block was pinned parallel to the epicondylar axis which was 4 degrees of external rotation. Anterior cut, anterior chamfer, posterior cut, posterior chamfer cuts were made. The box cutting guide was placed and adjusted slightly laterally. The box cut was made. The knee was flexed. The remnants of the medial and lateral menisci were excised. The osteophyte taken off the posterior aspect the femur. A trial femoral component was placed. The tibial tray was pinned in maximum external rotation and the drill and stem punch used to create defect in proximal tibia for the tibial tray. The knee was then trialed and the 12 mm insert fit most appropriately. Attention drawn the patella. The patella was cleaned of all soft tissues. Patella thickness measured 22 mm in thickness. It was cut down to 13. Was sized to a size 31 patella. The lug holes were drilled for the 31 patella. The lateral osteophytes removed. Patella button was placed. Knee was taken through range of motion patella tracked nicely with no thumbs test. Attention drawn to placing permanent components. All trial components were removed. Bone plug was placed in the distal femur limit blood loss. Double batch [place] G cement was mixed. Biomet Vanguard size 62.5 left posterior stabilized femoral component, a size 67 tibial tray, a 12 mm posterior stabilized polyethylene insert, and a 31 x 8 all Paller patella then cemented in place. Knee was brought out in full extension until cement hardened. Final cement check was then performed. The pericapsular tissues were injected with total of 100 cc of combination of 20 cc of Exparel, 30 cc normal saline, 50 cc of quarter percent Marcaine with epinephrine. Patient did receive 1 g tranexamic acid but the tourniquet was then let down for final tourniquet time of 56 minutes. Hemostasis reduced electrocautery. Extensor mechanism closed with combination 1 PDS suture #1 Vicryl suture in [id number] fashion. Extensor mechanism checked found to be intact with subcutaneous tissue then closed with 2 Dexon suture in buried fashion skin was closed skin el. Leg was then cleaned and dried and a sterile dressing was Xeroform, 4 x 4's, sterile cast padding, Hugo bandage were applied. Patient then transferred to the recovery room in stable condition. Patient tolerated the procedure well and there were no complications. Jose Lopez, my physician bilingual medical assistant, was present for the entire procedure. His assistance was essential and required for appropriate patient positioning, prepping and draping, surgical exposure, performing the technical details of the operation, placement the implants, closure of the wound, and placement of the sterile bandage. I attest to the content of the Intraoperative Record and any orders documented therein. Any exceptions are noted below.
--- NOTE | 2022-03-09 13:43 | Anesthesiology Progress Note ---
Date of Service March 09, 2022 Anesthesia Post Procedure Vital Signs Vital Signs: Temp Pulse Resp BP Pulse Ox O2 Del Method O2 Flow Rate 03/09/22 13:40 36.4 C L 61 16 149/78 H 94 Room Air 03/09/22 13:30 61 16 139/69 94 Room Air 03/09/22 13:20 63 16 129/74 99 Room Air 03/09/22 13:10 69 18 125/66 99 Oxymask 5 03/09/22 13:01 36.3 C L 71 18 116/67 99 Oxymask 5 03/09/22 08:46 36.5 C 80 20 167/94 H 95 Room Air 03/09/22 08:46 Room Air Transfer of Care Handoff Completed per policy Notes Mental Status: alert / awake / arousable and participated in evaluation Nausea / Vomiting: adequately controlled Pain: adequately controlled Airway Patency, RR, SpO2: stable & adequate BP & HR: stable & adequate Hydration State: stable & adequate Neuraxial Anesthesia: was administered and sensory block is resolving Anesthetic Complications: no major complications apparent and Pt Satisfied with anesthetic care
--- NOTE | 2022-03-09 13:47 | XRay Report ---
LEFT KNEE 2 VIEWS History: Left total knee arthroplasty. Degenerative arthritis. Postop. FINDINGS: The patient is status post a left total knee arthroplasty. The hardware is intact. No fract ure or dislocation. Skin el are in place. IMPRESSION: Left total knee arthroplasty. No evidence for hardware complication. ACT 112: Negative or not required by law. Electronically signed by: Bharath Delgado M.D. 03/09/2022 1:46 PM
[2022-03-09] MEDS ORDERED: MAGNESIUM HYDROXIDE SUSP 30 ML UDC PO PRN (14:59)
[2022-03-09] MEDS ORDERED: bisacodyL 10 MG SUPP PR PRN (14:59)
[2022-03-09] MEDS ORDERED: METOCLOPRAMIDE HCL INJ 5 MG/ML 2 ML VIAL IV PRN (14:59)
[2022-03-09] MEDS ORDERED: ALBUTEROL HFA 8 GM INHALER INH PRN (14:59)
[2022-03-09] MEDS ORDERED: NALOXONE HCL 0.4 MG/1 ML VIAL/CARP IV PRN (14:59)
[2022-03-09] MEDS ORDERED: ALUMINUM/MAGNESIUM SUSP 30 ML UDC PO PRN (14:59)
[2022-03-09] MEDS ORDERED: ONDANSETRON 4 MG OD TAB PO PRN (15:07)
[2022-03-09] MEDS: SODIUM CHLORIDE 0.9% 1000ML 1,000 ML IV SCH (15:37)
[2022-03-09] MEDS: ASCORBIC ACID 500 MG TAB PO SCH (16:39)
[2022-03-09] MEDS: ACETAMINOPHEN 500 MG TAB PO SCH ×2 (16:39→21:51)
[2022-03-09] MEDS: KETOROLAC TROMETHAMINE 15 MG/ML VIAL IV SCH ×2 (16:40→21:51)
[2022-03-09] MEDS: HYDROmorphone INJ 0.5 MG/0.5 ML SYR IV PRN ×2 (18:17→22:51)
[2022-03-09] MEDS: ceFAZolin 2000MG 2,000 MG/15 ML SYR IV SCH (18:17)
[2022-03-09] MEDS ORDERED: TRANEXAMIC ACID / 0.7% NACL 1,000 MG/100 ML BAG IV SCH (19:00)
[2022-03-09] MEDS: MAGNESIUM OXIDE 400 MG TAB PO SCH (20:57)
[2022-03-09] MEDS: FAMOTIDINE 40 MG TABLET PO SCH (20:58)
[2022-03-09] MEDS: DOCUSATE SODIUM 100 MG CAP PO SCH (20:58)
[2022-03-09] MEDS: DOCUSATE SODIUM/SENNA 50/8.6MG TAB PO SCH (20:59)
[2022-03-09] MEDS: ASPIRIN 81 MG ECTAB PO SCH (20:59)
[2022-03-09] MEDS ORDERED: SENNA 8.6 MG TAB PO SCH (21:00)
[2022-03-09] MEDS: TAPENTADOL HCL ER 50 MG TABCR PO SCH (21:01)
[2022-03-10] MEDS: SODIUM CHLORIDE 0.9% 1000ML 1,000 ML IV SCH (02:13)
[2022-03-10] MEDS: ceFAZolin 2000MG 2,000 MG/15 ML SYR IV SCH (03:34)
[2022-03-10] MEDS: oxyCODONE HCL IR 5 MG TAB (IMMEDIATE RELEASE) PO PRN ×2 (03:40→11:51)
[2022-03-10] MEDS: KETOROLAC TROMETHAMINE 15 MG/ML VIAL IV SCH ×2 (03:42→10:23)
[2022-03-10] MEDS: ACETAMINOPHEN 500 MG TAB PO SCH (06:01)
[2022-03-10 07:07] LABS: Hematocrit (blood only) 32.9 % (34.1-44.9); Hemoglobin 11.2 g/dl (12.0-16.0); Mean Corpuscular Hemoglobin 33.7 pg (25.0-34.0); Mean Corpuscular Volume 99.1 fL (80.0-100.0); Platelet Count 129 K/uL (130-400); RDW Coefficient of Variation 13.4 % (11.5-14.5); RDW Standard Deviation 48.8 fL (36.4-46.3); Red Blood Count 3.32 M/uL (3.93-5.22); White Blood Count 8.88 K/ul (4.8-10.8)
--- NOTE | 2022-03-10 07:41 | Progress Notes ---
DATE OF SERVICE: 03/10/2022. SUBJECTIVE: A 72-year-old female postoperative day 1 from a left knee replacement. She is doing pre tty well. Had a good night. Pain is controlled. No chest pain or shortness of breath. Not feeling dizzy or lightheaded. OBJECTIVE: VITAL SIGNS: Temperature 36.8. Vital signs are stable. GENERAL: Shows a pleasant, elderly female. Lying in bed and looks comfortable. LUNGS: Clear to auscultation. HEART: Regular rate and rhythm. ABDOMEN: Soft, nontender, nondistended. EXTREMITIES: Grossly neurovascularly intact except as follows. Examination of the left leg reveals the dressing to be clean, dry and in place. There is a little bi t of bloody drainage at the inferior aspect. She can do a straight leg raise. She can dorsiflex and plantarflex her foot appropriately. LABORATORY DATA: Hemoglobin 11.2. Hematocrit 32.9. Electrolytes are pending. ASSESSMENT: A 72-year-old female postoperative day 1 from left knee replacement, doing pretty well. Pain is controlled. She is neurologically intact. PLAN: 1. DVT prophylaxis including thigh-high TEDs, SCDs, and aspirin twice a day. 2. OT, weightbear as tolerated. Left total knee protocol. 3. Pain control, doing well with current pain regimen. 4. Disposition: Plan to discharge home with some home health likely later today if she does okay in therapy. Job ID: [id number]
[2022-03-10] MEDS: DOCUSATE SODIUM 100 MG CAP PO SCH (07:58)
[2022-03-10] MEDS: ASPIRIN 81 MG ECTAB PO SCH (07:59)
[2022-03-10] MEDS: FAMOTIDINE 40 MG TABLET PO SCH (07:59)
[2022-03-10] MEDS: DOCUSATE SODIUM/SENNA 50/8.6MG TAB PO SCH (07:59)
[2022-03-10] MEDS: MAGNESIUM OXIDE 400 MG TAB PO SCH (07:59)
[2022-03-10] MEDS: ASCORBIC ACID 500 MG TAB PO SCH (08:00)
[2022-03-10] MEDS ORDERED: dexAMETHasone 10 MG in SYRINGE 0 ML IV SCH (08:00)
[2022-03-10] MEDS: TAPENTADOL HCL ER 50 MG TABCR PO SCH (08:03)
[2022-03-10 08:45] LABS: BUN Creatinine Ratio 23.9 (10-20); Calcium 8.1 mg/dl (8.5-10.1); Creatinine Clr Calc Pharmacy 77.4 ml/min; Est GFR (African American) 97.9 ml/min; Est GFR (Non-African American) 84.5 ml/min; Potassium 3.7 mmol/L (3.5-5.1)
[2022-03-10] MEDS: HYDROmorphone INJ 0.5 MG/0.5 ML SYR IV PRN (08:52)
[2022-03-10] MEDS ORDERED: METOPROLOL SUCC 25MG EXT REL TAB PO SCH (09:00)
[2022-03-10] MEDS ORDERED: ASCORBIC ACID 500 MG TAB PO SCH (09:00)
[2022-03-10] MEDS ORDERED: MULTIVITAMIN TAB PO SCH (09:00)
[2022-03-10] MEDS ORDERED: LOSARTAN POTASSIUM 50 MG TAB PO SCH (09:00)
[2022-03-10] MEDS ORDERED: DULoxetine HCL 30 MG CAP PO SCH (09:00)
[2022-03-10] MEDS ORDERED: UMECLIDINIUM/VILANTEROL 62.5/25MCG 7 PUFFS/INHALER INH SCH (09:00)
[2022-03-10] MEDS ORDERED: CALCIUM 600MG + VIT D 400 IU TAB PO SCH (09:00)
[2022-03-10] MEDS ORDERED: NON-FORMULARY MEDICATION (Fluticasone-Umeclidin-Vilanter [Trelegy Ellipta] 100-62.5-25 mcg INH SCH (09:00)
[2022-03-10] MEDS ORDERED: FLUTICASONE FUROATE 100MCG 14 PUFFS/INHALER INH SCH (09:00)
[2022-03-10] MEDS ORDERED: EZETIMIBE/SIMVASTATIN 10/20 TAB PO SCH (09:00)
--- NOTE | 2022-03-12 16:09 | Discharge Summary ---
Date of Service March 12, 2022 Discharge Data Procedures Performed Operation Date: 03/09/22 10:40 Actual Procedures p Left Total Knee Arthroplasty, Cemented(Left) - Bldaimir Tena MD Hospital Course (1) Status post total left knee replacement: This is a 72 year old patient admitted on 03/09/22 and underwent total knee arthroplasty. She tolerated the procedure well and there were no complications. Transferred to the PACU post op and later to the orthopedic floor for further care. She was given ancef for antibiotic prophylaxis. She was also given BEHZAD stockings, SCDs, and aspirin for DVT prophylaxis. Hemoglobin, hematocrit, and vital signs were monitored during her hospital stay and remained stable. Did not require any blood transfusions. There were no complications during her hospital stay. By post op day #1 the patient was tolerating a regular diet, pain was reasonably controlled with oral pain medicine, and she was participating in physical therapy. On post op day #1 the patient was discharged home and set up with home health care. She was given printed discharge instructions including prescriptions for extra strength tylenol, aspirin, cefadroxil, ketorolac, zofran, senokot, and oxycodone. Continue physical therapy, weight bearing as tolerated. Continue BEHZAD stockings. Follow up approximately 2 weeks post op or sooner if there are problems or concerns. Coding Level of Care Code None Diagnoses Status post total left knee replacement Z96.652
== END 2022-03-10 12:42 | disposition home health service (06) ==
LOC: 3E 08:02 → ASU 08:02